=== PATIENT | female | born 1965 | race Caucasian/White ===

== ENCOUNTER 2017-05-26 11:36 | Emergency (ER) | payer OTHER ==
[~2017-05-26] VITALS: Ht 167.6 cm; Wt 93.0 kg
[2017-05-26 11:39] VITALS: BP 144/93
== END 2017-05-26 14:55 | disposition home or self-care (01) ==
LOC: ED 14:30
DX: L02.211 Cutaneous abscess of abdominal wall (principal); Z90.710 Acquired absence of both cervix and uterus
CPT/HCPCS: 93005; 99283